=== PATIENT | male | born 1955 | race Hispanic/Latino ===

== ENCOUNTER 2022-06-15 05:46 | Day surgery (SDC) | payer MEDICARE ==
[2022-06-13 11:04] LABS: Absolute Lymphocytes (CBC) 1.9 K/uL (0.7-4.9); Hematocrit 45.3 % (39.6-49.0); Lymphocytes % 25.7 % (15.3-44.8); MCV 91.5 fL (80-100); MPV 8.3 fL (7.6-11.3); RBC Red Blood Cell Count 4.96 M/uL (4.33-5.43)
--- NOTE | 2022-06-13 11:06 | RAD REPORT ---
EXAM DESCRIPTION: RAD - Chest Pa And Lat (2 Views) - 06/13/2022 10:56 am CLINICAL HISTORY: Pre op pending hernia surgery Chest pain. COMPARISON: No comparisons TECHNIQUE: PA and lateral views of the chest were obtained. FINDINGS: The lungs are hyperexpanded compatible with COPD. The heart is upper limit of normal in si ze. No fracture or aggressive bony process. IMPRESSION: COPD without acute process identified. The USPSTF recommends annual screening for lung cancer with low-dose CT (LDCT) in adults aged 50 to 80 years who have a 20 pack-year smoking history and currently smoke or have quit within the past 15 years.
[2022-06-13 11:17] LABS: Potassium 3.9 mmol/L (3.5-5.1)
[2022-06-13 11:29] LABS: SARS-CoV-2 Antigen Rapid Res Negative (Negative)
--- NOTE | 2022-06-14 15:42 | EKG ---
Test Date: 2022-06-13 Test Time: 10:27:29 Green Marketer: NESTOR MEASUREMENT RESULTS: Intervals: Rate: 65 [place]: 140 QRSD: 110 QT: 380 QTc: 395 [place]: P: 33 [place]: 140 QRS: 50 T: 75 INTERPRETIVE STATEMENTS: Normal sinus rhythm Normal ECG No previous ECG available for comparison Electronically Signed On 06-14-22 15:39:34 CDT by Robert Wang
[2022-06-15] MEDS: Ringers Lactate 1,000 ML IV ONE (07:17)
[2022-06-15] MEDS ORDERED: BUPIVACAINE 0.25% PF 10 ML VIAL ONE (07:18)
[2022-06-15] MEDS ORDERED: BUPIVACAINE 0.5% PF 10 ML VIAL ONE (07:18)
[2022-06-15] MEDS ORDERED: propofoL 200 MG/20 ML VIAL IV ONE (07:21)
[2022-06-15] MEDS ORDERED: FENTANYL CITR 100 MCG/2 ML ONE ×2 (07:22→08:13)
[2022-06-15] MEDS ORDERED: ROCURONIUM 50 MG/5 ML VIAL IV ONE (07:22)
[2022-06-15] MEDS ORDERED: MIDAZOLAM HCL 2 MG/2 ML INJ ONE (07:22)
[2022-06-15] MEDS ORDERED: ONDANSETRON 4 MG/2 ML VIAL ONE ×2 (07:23→07:57)
[2022-06-15] MEDS ORDERED: LIDOCAINE 1% MPF 5 ML VIAL ONE (07:23)
[2022-06-15] MEDS ORDERED: dexAMETHasone 4 MG/ML VIAL ONE (07:57)
[2022-06-15] MEDS ORDERED: CEFAZOLIN SODIUM 1 GM/VIAL ONE (08:01)
[2022-06-15] MEDS: BUPIVACAINE 0.5% PF 10 ML VIAL SQ ONE ×3 (08:02)
--- NOTE | 2022-06-15 08:25 | P.BOP ---
Preoperative diagnosis: recurrent large tender incarcerated right inguinal hernia Postoperative diagnosis: same Primary procedure: Open repair recurrent large incarcerated right inguinal hernia with mesh Roll Up Machine Operator: GILDA SANTOS (KELLY MACHINE OPERATOR) Estimated blood loss: <10cc Specimen: sac Findings: large incarcerated right inguinal hernia Anesthesia: General Complications: None Implants: mesh plug Transferred to: Recovery Room Condition: Good
[2022-06-15] MEDS ORDERED: NEOSTIGMINE 1 MG/ML -10 ML VIAL ONE (08:30)
[2022-06-15] MEDS ORDERED: GLYCOPYRROLATE 0.2 MG/ML SYR ONE (08:30)
[2022-06-15] MEDS ORDERED: KETOROLAC 30 MG/ML INJ ONE (08:32)
[2022-06-15 09:04] VITALS: TEMP 97.4
[2022-06-15] MEDS ORDERED: CODEINE 30MG/APAP 300MG TAB PO ONE (09:04)
[2022-06-15] MEDS: TAMSULOSIN 0.4 MG SR CAP PO ONE (09:18)
[2022-06-15] MEDS ORDERED: TAMSULOSIN 0.4 MG SR CAP ONE (09:26)
[2022-06-15 10:01] VITALS: BP 124/77; O2SAT 98
--- NOTE | 2022-06-15 14:46 | DS ---
Date of Discharge: 06/15/2022 Diagnosis: Recurrent large tender incarcerated right inguinal hernia. Procedure: Open repair of recurrent large incarcerated right inguinal hernia with mesh. Disposition: Home. Activity: As tolerated. No heavy lifting. Plan: Followup in my office in 1 week. Call for appointment at [phone]. Cold compress to the righ t inguinal region for 24 hours. Medications: See orders. KRYSTAL/MODL Voice ID: [id number] Report ID: [id number]
--- NOTE | 2022-06-15 14:46 | OP ---
Date of Procedure: 06/15/2022 Surgeon: Graham Jennings MD Sales Program Coordinator: Denisse Castro. Preoperative Diagnosis: Recurrent large tender incarcerated right inguinal hernia. Postoperative Diagnosis: Recurrent large tender incarcerated right inguinal hernia. Procedure: Open repair of recurrent incarcerated right inguinal hernia with mesh. Estimated Blood Loss: Less than 10 mL. Specimen: Hernia sac. Finding: Incarcerated omentum, also some component of small bowel. Anesthesia: General plus local. Complications: None. Implant: Mesh plug. Indication: This is the case of a 66-year-old patient, who comes to us with a large hernia, increasi ng pain and discomfort. We discussed with him the importance of repair due to previous surgery using the scar tissue in that area. He had this surgery done in the 1970s. We discussed with him pros an d cons of laparoscopic versus open. Decision was made to go for open repair of the right incarcerate d inguinal hernia with mesh with benefits, alternatives, and risks including, but not limited to infe ction, bleeding, damage to adjacent structures, anesthesia complication, recurrence, chronic pain, ch ronic numbness, CT, and even . He also understands this may not relieve any symptoms. He might need more than one surgical intervention. He also understands we may be using mesh in that region a rafael with pros and cons of mesh placement discussed with the patient. He signed a consent. The area of concern was marked by me and the patient in the holding room. Procedure In Detail: The patient was brought to the operating room, placed in supine position. Anes thesia was done without complication. Right inguinal area was prepped and draped in the usual steril e fashion. Marcaine 0.5% was injected for local anesthetic followed by sharp incision of the skin us ing the previous incision. The incision was carried down to Solomon fascia, which was opened under di rect vision. External oblique aponeurosis was noticed. Once again, we have scar tissue, so we took sometime just to get into through that scar tissue until we identified the structure. We noticed a h ernia coming through the superficial inguinal ring. We opened the external oblique aponeurosis, iden tified the ilioinguinal nerve and iliohypogastric nerve, retracted behind external oblique aponeurosi s and protected. Olton placed around the spermatic cord. We noticed the patient to have hernia co luana through right at the pubic tubercle region. We were able to open hernia sac and there is a comp onent of omentum and some small bowel too, but it looks viable so we carefully reduced the hernia sac . We ligated and reduced the rest and help with a mesh plug on to that opening and secured in place the mesh plug with VersaTack right near the pubic tubercle. The inguinal canal was reconstructed wit h the help of 2-0 Prolene making sure the nerves were not included and making sure the spermatic cord structures have enough space. At this moment, we believe putting the mesh sheet in that area will c ontinue with the extension of more dissection an area that does not need at this moment, so we will l eave only the mesh plug placed in that area of the recurrence. The Monica was removed. The spermat ic cord structures were preserved. The superficial inguinal ring was reconstructed and external obli que aponeurosis closed with 2-0 Prolene making sure the nerves were not included. Solomon fascia was closed with 3-0 chromic and the skin closed with jose enrique. Sponge count, instrument counts correct at the end of the case. Testicles are within the scrotum. KRYSTAL/BRENDA Voice ID: [id number] Report ID: [id number]
== END 2022-06-15 10:30 | disposition home or self-care (01) ==
LOC: OR 05:46
PROVIDERS: ATTEND Surgery
PROC: 0YU50JZ Supplement Right Inguinal Region with Synthetic Substitute, Open Approach (ICD-10-PCS; principal; 2022-06-15 07:30)
DX: K40.31 Unilateral inguinal hernia, with obstruction, without gangrene, recurrent (principal); Z20.822 Contact with and (suspected) exposure to COVID-19
CPT/HCPCS: 36415; 71046; 80048; 85025; 87811; 88302; 93005; J0690; J1100; J2001; J2250; J2405; J2704; J2710; J3010; J7120

== ENCOUNTER 2024-05-28 06:54 | Day surgery (SDC) | payer MEDICARE ==
[2024-05-21 10:33] LABS: Absolute Basophils 0.1 K/uL (0-0.5); Absolute Eosinophils 0.2 K/uL (0-0.5); Absolute Lymphocytes (CBC) 1.7 K/uL (0.7-4.9); Absolute Monocytes 0.5 K/uL (0.1-1.3); Absolute Neutrophil 3.7 K/uL (1.8-8.0); Basophils % 1.1 % (0-1.3); Eosinophils % 3.8 % (0-4.4); Hematocrit 44.7 % (39.6-49.0); Hemoglobin 14.6 g/dL (13.6-17.9); MCH 30.5 pg (27.0-35.0); MCHC 32.7 g/dL (32.0-36.0); MCV 93.3 fL (80-100); MPV 8.6 fL (7.6-11.3); Monocytes % 8.7 % (3.3-12.3); Neutrophils % 59.4 % (41.7-73.7); Platelets 229 thou/uL (152-406); RBC Red Blood Cell Count 4.79 M/uL (4.33-5.43); Red Cell Distribution Width 13.8 % (12.1-15.2)
[2024-05-21 10:40] LABS: PT Prothrombin Time 11.5 SECONDS (9.4-12.5); Protime INR 1.03
--- NOTE | 2024-05-21 10:43 | RAD REPORT ---
EXAM DESCRIPTION: RAD - Chest Pa And Lat (2 Views) - 05/21/2024 10:37 am CLINICAL HISTORY: pre op for surgery Chest pain. COMPARISON: Chest Pa And Lat (2 Views) dated 06/13/2022 TECHNIQUE: PA and lateral views of the chest were obtained. FINDINGS: The lungs are hyperexpanded compatible with COPD. The heart is upper limit of normal in si ze. No fracture or aggressive bony process. IMPRESSION: COPD without acute process identified. The USPSTF recommends annual screening for lung cancer with low-dose CT (LDCT) in adults aged 50 to 80 years who have a 20 pack-year smoking history and currently smoke or have quit within the past 15 years.
--- NOTE | 2024-05-22 17:00 | EKG ---
Test Date: 2024-05-21 Test Time: 10:18:20 Toeing Stockings: DARION MEASUREMENT RESULTS: Intervals: Rate: 53 NM: 136 QRSD: 110 QT: 410 QTc: 384 [place]: P: 41 NM: 136 QRS: 50 T: 59 INTERPRETIVE STATEMENTS: Sinus bradycardia Otherwise normal ECG Compared to ECG 06/13/2022 10:27:29 Sinus rhythm no longer present Electronically Signed On 05-22-24 16:57:21 CDT by Anthony Aguilar
[2024-05-28] MEDS: Ringers Lactate 1,000 ML IV ONE ×2 (07:46→13:00)
[2024-05-28] MEDS ORDERED: LIDOCAINE 1% MPF 5 ML VIAL ONE (08:13)
[2024-05-28] MEDS ORDERED: FENTANYL CITR 100 MCG/2 ML ONE (08:14)
[2024-05-28] MEDS ORDERED: propofoL 200 MG/20 ML VIAL IV ONE (08:14)
[2024-05-28] MEDS ORDERED: ONDANSETRON 4 MG/2 ML VIAL ONE (08:14)
[2024-05-28] MEDS: CEFAZOLIN SODIUM 2 GM/VIAL ONE (09:01)
[2024-05-28] MEDS ORDERED: dexAMETHasone 10 MG/ML VIAL ONE (09:02)
[2024-05-28] MEDS ORDERED: GLYCOPYRROLATE 0.2 MG/ML SYR ONE (09:03)
[2024-05-28] MEDS ORDERED: EPHEDRINE SULF 50 MG/ML VIAL ONE (09:08)
--- NOTE | 2024-05-28 10:41 | P.OP ---
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 Smith is a 68-year-old gentleman who presented with an elevated PSA in the setting of obstructive LUTS due to BPH. He was treated with Flomax 0.4 mg daily and increase to 0.8 mg daily but his LUTS were refractory. Additionally, his PSA failed to resolve to baseline. As a result, he underwent a biopsy of his prostate which revealed the presence of grade group 4 adenocarcinoma the prostate. He was counseled on options for definitive management of his prostate cancer and eventually elected to proceed with radiation therapy plus androgen deprivation therapy. He has been started on Orgovyx as well as Zytiga plus prednisone, and SpaceOAR gel insertion plus fiducial markers were requested. Given his significant obstructive LUTS, I recommended he consider the UroLift as opposed to fiducial markers, which will serve the same purpose. He was counseled on the need to avoid initiation of radiation therapy for at least 3 to 4 weeks after completion of the UroLift, or once his LUTS resolved back to baseline. Procedure note: The patient was consented in the preoperative holding area before being transferred to the operative suite where general anesthesia was induced. He was given Ancef 2 g IV antimicrobial prophylaxis, and pneumoboots were provided for DVT prophylaxis. He was placed in the high lithotomy position, padded and secured to the table appropriately. The transrectal ultrasound probe was placed via his anus into his rectum with ease, and his scrotum and genitalia was eleva akua out of the perineal region using an Ioban drape. The perineum was then prepped with Betadine and the ultrasound probe was draped with a blue towel. I then utilized ultrasound guidance to direct the SpaceOAR injection needle under direct vision via the perineum beyond the urogenital diaphragm and into the prerectal fat plane as visible ultrasonographically. I was able to navigated through that fat plane until I reached the mid base zone of the prostate. I confirmed an axial dimension that I was in the midline of the prostate before aspirating and injecting a bolus of saline which created a nice space between the rectum and the base of the prostate. I then switched the saline syringe for the SpaceOAR mixture injection components, and I injected the SpaceOAR mixture under ultrasound visualization and observed its created a very nice buffer between the base of the prostate and the rectum. This space was created across the entirety of the base of the prostate but more so on the patient's right than on the left. As a result, I removed the SpaceOAR injection needle and then remove the Ioban drape elevating the patient's genitalia before wiping away the Betadine from his perineum. The patient was then repositioned into the low lithotomy position and his genitalia was prepped with Hibiclens and draped in standard fashion for UroLift procedure. Using the 20 [place] UroLift sheath and a visual obturator, the urethra was traversed and the prostatic urethra was navigated before entry into the bladder. Has not previously been noted, there was significant interdigitating lateral lobar hypertrophy with an elevated median bar without significant lateral sulci noted. I thus began by switching the visual obturator for a UroLift delivery device and an implant. I targeted the first implant very anteriorly on the patient's left side about 1.5 cm distal to the bladder neck opening and elevated the tissue significantly angling it laterally about 15 degrees before pulling the trigger wants. This did seem to deploy the needle through the substance of the prostate, but when I pulled the trigger a second time, it did not seem to deploy a capsular tab and instead pulled through completely. As a result, I removed the device and completed the poles delivering the implant into the drainage basket outside of his body. I then redirected the scope back into the bladder and switched for a new UroLift implant before ultimately taking a less aggressive anterior approach to placement of the implant on the patient's left at about 2 cm distal to the bladder neck opening. I pulled the trigger once delivering the needle through the substance of the prostate before angling the scope and additional 15 degrees laterally to ensure the tip of the needle was delivered outside of the capsule. I then pulled the trigger a second time delivering the capsular tab and partially retracting the needle. A third pull of the trigger did tension the suture and completely retract the needle before I advanced the scope back toward the midline and 2 to 3 mm toward the bladder neck opening. I then pulled the trigger of fourth time delivering the urethral end piece which did nicely lateralized and invaginated into the tissue with a nice rim between the implant and the entry into the bladder. I then advanced the scope and device back into the patient's bladder before switching for new implant. This implant I targeted at the patient's right anterolateral bladder neck opening high anteriorly at around the 11 o'clock position at about 1.5 to 2 cm distal to the bladder neck opening. This implant was successfully placed and did lateralize the opening at the bladder neck. The median bar was now slightly more apparent at this point even though there was a lift at the bladder neck opening. As a result, I continue to place an additional implant at the patient's left apex at the level of the verumontanum and then the right apex at the level of the verumontanum. I then surveyed the channel created, and there was still significant intervening tissue in the mid zone of the prostate between the apical implant and the ones at the bladder neck. An additional 2 implants were placed into that tissue before again surveying the channel created. At this point, there was slight intraluminal projection mostly coming from the patient's right side between the apical and the mid gland implant; so a 7 the implant was placed into that location nicely creating a beautiful channel with persistent degree of possible obstruction at the bladder neck due to the elevated median bar. As a result, I implanted the eighth and final implant this time using the ATC device UL 2 platform to grasp the bladder neck and angle it inward and down over to the patient's right side at around the 9 o'clock position successfully lateralizing that median bar and opening the bladder neck. This did create a continuous anterior channel visible from the verumontanum all the way through into the bladder neck. While there was some residual inner luminal projecting tissue, there was still a continuous anterior channel which was nicely patent. As a result, I concluded the placement of any further implants after a total of 9 implants had been used, and I removed the scope and placed a 20 [place] urethral River catheter via his urethra into his bladder with ease. I placed about 30 cc of sterile water into the balloon, and then allow the catheter to drain. The urine was pink but translucent; so I utilized the 60 cc catheter tip syringe and some saline to irrigate the bladder and remove a small quantity of several clots that were small. The urine continued to be somewhat pink but translucent; so the catheter was connected to a leg bag and he was taken out of the lithotomy position. He was then awakened from general anesthesia before being transferred to a stretcher and then transferred to the recovery room in good condition. Complications: None Discharge disposition: He will be standard UroLift follow-up pathway and scheduled to follow-up in about 1 month's time. He should plan to begin his radiation therapy no sooner than about 3 to 4 weeks from today's surgery.
[2024-05-28] MEDS ORDERED: CODEINE 30MG/APAP 300MG TAB ONE (11:16)
[2024-05-28] MEDS ORDERED: PHENAZOPYRIDINE 100MG TAB PO ONE (11:16)
[2024-05-28] MEDS: CODEINE 30MG/APAP 300MG TAB PO PRN (11:20)
[2024-05-28] MEDS: PHENAZOPYRIDINE 100MG TAB PO ONE (11:20)
[2024-05-28 12:22] VITALS: TEMP 97.1; O2SAT 100
[2024-05-28] MEDS: LIDOCAINE JELLY 2% 5 ML SYRINGE TOP ONE (14:55)
[2024-05-28 19:54] VITALS: BP 117/64
== END 2024-05-28 15:46 | disposition home or self-care (01) ==
LOC: OR 06:54
PROVIDERS: ATTEND Urology
PROC: 0T7D8DZ Dilation of Urethra with Intraluminal Device, Via Natural or Artificial Opening Endoscopic (ICD-10-PCS; principal; 2024-05-28 08:15)
PROC: 0VH43YZ Insertion of Other Device into Prostate and Seminal Vesicles, Percutaneous Approach (ICD-10-PCS; 2024-05-28 08:15)
DX: C61 Malignant neoplasm of prostate (principal); N40.1 Benign prostatic hyperplasia with lower urinary tract symptoms; N13.8 Other obstructive and reflux uropathy
CPT/HCPCS: 93005; 85025; 87086; 36415; 85610; 71046; 52441; 52442 ×7; 55874; J2704; J2001; J3010; J1100; J2405; J7120 ×2; 87088